=== PATIENT | female | born 2000 | race Two or more races ===

== ENCOUNTER 2022-08-14 09:33 | Emergency (ER) | payer MEDICAID, OTHER ==
[~2022-08-14] VITALS: Ht 154.9 cm; Wt 73.6 kg
[2022-08-14 09:55] VITALS: BP 143/87
[2022-08-14] MEDS ORDERED: cefTRIAXone SOD 1,000 MG VL IM ONE (10:15)
[2022-08-14] MEDS ORDERED: AZIT500T66 PO (10:48)
[2022-08-14] MEDS ORDERED: LIDO2SOL23 PO (10:48)
== END 2022-08-14 10:57 | disposition home or self-care (01) ==
LOC: ER 09:33
DX: H65.191 Other acute nonsuppurative otitis media, right ear (principal); J03.90 Acute tonsillitis, unspecified
CPT/HCPCS: 96372; 99283; J0696

== ENCOUNTER 2024-03-02 17:04 | Emergency (ER) | payer MEDICAID ==
[~2024-03-02] VITALS: Ht 152.4 cm; Wt 65.0 kg
[~2024-03-02 17:04] MED LIST: AZIT500T66 PO; LIDO2SOL26 PO
[2024-03-02] MEDS: SODIUM CHLORIDE 0.9% 1,000 ML IV ONE (18:01)
[2024-03-02 18:24] LABS: Basophils # (auto) 0 10 ^3/uL (0-0.2); Basophils % (auto) 0.3 % (0.0-2.0); Eosinophils # (auto) 0 10 ^3/uL (0-0.8); Eosinophils % (auto) 0.2 % (0.0-7.0); Lymphocytes % (auto) 15.9 % (10.0-50.0); Mean Corpuscular Hemoglobin 27.6 pg (28.0-32.0); Mean Corpuscular Hgb Conc. 33.4 g/dL (32.0-36.0); Mean Corpuscular Volume 82.5 fL (80.0-100.0); Monocytes # (auto) 0.6 10 ^3/uL (0-1.3); Monocytes % (auto) 4.9 % (0.0-12.0); Neutrophils % (auto) 78.7 % (37.0-80.0); Nucleated Red Blood Cells % 0.1 %; Red Blood Cells 4.72 10^6/uL (4.0-5.20); Red Cell Distribution Width 14.2 % (11.8-14.3); White Blood Cell 12.6 10^3/uL (4.4-10.8)
[2024-03-02 18:40] LABS: Alanine Aminotransferase 15 U/L (7-40); Albumin 4.4 g/dL (3.2-4.8); Alkaline Phosphatase 72 U/L (46-116); Anion Gap 8 (5-15); Aspartate Aminotransferase 9 U/L (13-40); BUN/Creatinine Ratio 19.7 (10.0-20.0); Bilirubin, Total 0.4 mg/dL (0.2-1.0); Blood Urea Nitrogen 12 mg/dL (9-23); Calcium 9.5 mg/dL (8.5-10.1); Carbon Dioxide 23 mmol/L (20-30); Chloride 110 mmol/L (98-107); Glucose 85 mg/dL (74-106); Potassium 4.2 mmol/L (3.5-5.1); Sodium 141 mmol/L (136-145); Total Protein 6.6 g/dL (5.7-8.2)
[2024-03-02 19:34] VITALS: BP 123/85; PULSE 84; RESP 16; TEMP 98; O2SAT 97
== END 2024-03-02 19:33 | disposition home or self-care (01) ==
LOC: EDUNIT# 17:04 → EDBD 17:04 → ER 17:04
DX: T67.5XXA Heat exhaustion, unspecified, initial encounter (principal); Z79.899 Other long term (current) drug therapy; X58.XXXA Exposure to other specified factors, initial encounter; Y93.89 Activity, other specified; Y92.89 Other specified places as the place of occurrence of the external cause; Y99.8 Other external cause status
CPT/HCPCS: 36415; 80053; 85025; 93005; 96360; 99284; J7030

== ENCOUNTER 2024-11-07 12:10 | Emergency (ER) | payer MEDICAID, SELFPAY ==
[~2024-11-07] VITALS: Ht 152.4 cm; Wt 72.3 kg
--- NOTE | 2024-11-07 13:02 | ED.PDOC ---
History of Present Illness HPI Comments 24F presents to the Er w/ prior Hx of being of 6 weeks which is associated to the c/c of cramping pain. Pt reports on being 6 weeks with cramps for 6 weeks as well. Pt notes that the cramping pain worsened today and that she is currently taking her Prenatals. . Denies chills, vaginal bl eeding, fever, N/V/D, SOB, CP or no other associated symptom's, modifiers, recent injuries or sick contacts at this time. Chief Complaint: Abdominal Pain Time Seen by MD: 12:35 Primary Care Provider: NONE Reviewed Notes: Nurses Notes, Medications, Allergies Allergies: Coded Allergies: NO KNOWN ALLERGIES (Unverified , 08/14/22) Home Meds Active Scripts Lidocaine HCl (Mouth-Throat) (Lidocaine HCl Viscous) 2 % Mariah, 5 % PO TID, #100 ML Prov:SHY STOCKTON 08/14/22 Azithromycin (Azithromycin) 500 Mg Tab, 1 TAB PO DAILY, #5 TAB Prov:SHY STOCKTON 08/14/22 Information Source: Patient Mode of Arrival: Ambulatory Severity: Moderate Timing: Weeks Duration: Since onset Prehospital treatment: None Past Medical History PAST MEDICAL HISTORY: Denies Past Medical History (Other): Surgical History: Denies all surgeries 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: 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 all 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 MANAGER Hx Family History Family History: Reviewed,noncontributory to illness, Unknown Social History Smoker: Non-Smoker Alcohol: Denies ETOH Use Drugs: Denies Drug Use Lives In: Home Constitutional: denies: chills, diaphoresis, fatigue, fever, malaise, sweats, weakness, others EENTM: denies: blurred vision, double vision, ear bleeding, ear discharge, ear drainage, ear pain, ear ringing, eye pain, eye redness, hearing loss, mouth pain, mouth swelling, nasal discharge, nose bleeding, nose congestion, nose pain, photophobia, tearing, throat pain, throat swelling, voice changes, others Respiratory: denies: cough, hemoptysis, orthopnea, SOB at rest, shortness of breath, SOB with excertion, stridor, wheezing, others Cardiovascular: denies: chest pain, dizzy spells, diaphoresis, Dyspnea on exertion, edema, irregular heart beat, left arm pain, lightheadedness, palpitations, PND, syncope, others Gastrointestinal: denies: abdomen distended, abdominal pain, blood streaked bowels, constipated, diarrhea, dysphagia, difficulty swallowing, hematemesis, melena, nausea, poor appetite, poor fluid intake, rectal bleeding, rectal pain, vomiting, others Genitourinary: reports: pain, ; denies: abnormal vagina bleeding, burning, dyspareunia, dysuria, flank pain, frequency, hematuria, incontinence, vagina discharge, urgency, others Neurological: denies: dizziness, fainting, headache, left sided numbness, left sided weakness, numbness, paresthesia, pre-existing deficit, right sided numbness, right sided weakness, seizure, speech problems, tingling, tremors, weakness, others Musculoskeletal: denies: back pain, gout, joint pain, joint swelling, muscle pain, muscle stiffness, neck pain, others Integumetry: denies: bruises, change in color, change in hair/nails, dryness, laceration, lesions, lumps, rash, wounds, others Allergic/Immunocompromised: denies: Difficulty Healing, Frequent Infections, Hives, Itching, others Hematologic/Lymphatic: denies: anemia, blood clots, easy bleeding, easy bruising, swollen glands, others Endocrine: denies: excessive hunger, excessive sweating, excessive thirst, excessive urination, flushing, intolerance to cold, intolerance to heat, unexplained weight gain, unexplained weight loss, others Psychiatric: denies: anxiety, bipolar disorder, depression, hopeless, panic disorder, schizophrenia, sleepless, suicidal, others All Other Systems: Reviewed and Negative Physical Exam General Appearance: Moderate Distress, Normal HEENT: Normal ENT Inspection, Pharynx Normal, TMs Normal Neck: Full Range of Motion, Non-Tender, Normal, Normal Inspection Respiratory: Chest Non-Tender, Lungs Clear, No Accessory Muscle Use, No Respiratory Distress, Normal Breath Sounds Cardiovascular: No Edema, No JVD, No Murmur, No Gallop, Normal Peripheral Pulses, Regular Rate/Rhythm Breast Exam: Deferred Gastrointestinal: No Organomegaly, Non Tender, No Pulsatile Mass, Normal Bowel Sounds, Soft Genitalia: Deferred Pelvic: Deferred Rectal: Deferred Extremities: No calf tenderness, Normal capillary refill, Normal inspection, Normal range of motion, Non-tender, No pedal edema Musculoskeletal : Apperance: Normal Neurologic: Alert, milling machine tender II-XII nml as Tested, No Motor Deficits, Normal Affect, Normal Mood, No Sensory Deficits Cerebellar Function: Normal Reflexes: Normal Skin: Dry, Normal Color, Warm Peripheral Pulses: 3+ Radial (R), 3+ Radial (L) Lymphatic: No Adenopathy Was a procedure done? Was a procedure done?: No Differential Dx Considerations may include: Urinary tract infection X-Ray, Labs, Meds, VS Vital Signs Date Time Temp Pulse Resp B/P (MAP) Pulse Ox O2 Delivery O2 Flow Rate FiO2 11/07/24 12:28 97.4 107 17 129/88 (102) 97 97.4 Lab Test 11/07/24 12:54 Range/Units Beta HCG, Quantitative 08760.5 H 1.5-4.2 mIU/mL Patient alert. Anxious. Vitals stable. Answering all questions. Beta quant appropriate. Abdomen is soft. No sign of any cramping. No bleeding. She is taking her vitamins. She does not have burning on urination. Explained to the patient. Was told to follow up with her primary care physician. Was told to come back if there is any problem. Time of 1ST Reevaluation: 13:05 Reevaluation 1ST: Improved Patient Education/Counseling: Diagnosis, Treatment, Prognosis Family Education/Counseling: No Family Present Departure 1 Departure Time of Disposition: 13:57 Impression: Primary Impression: Normal Qualified Codes: Z34.90 - Encounter for supervision of normal , unspecified, unspecified trimester Disposition: 01 HOME / SELF CARE / HOMELESS Condition: Good Discharged With: Self Critical Care Note Critical Care Time?: No Stability Stability form required: No Heart Score Heart Score: Heart Score Response (Comments) Value History N/A 0 EKG N/A 0 Age N/A 0 Risk Factors N/A 0 Troponin N/A 0 Total 0 I personally scribed for PAUL LOVE MD ([email or web address]) on 11/07/24 at 13:02. Electronically submitted by Evan Dalal ([email or web address]). PAUL LOVE MD Nov 07, 2024 13:02
--- NOTE | 2024-11-07 14:34 | DVH ---
CLINICAL HISTORY: cramping COMPARISON:None TECHNIQUE: grayscale sonographic imaging of the uterus and ovaries was performed, assisted by color Doppler technique. Duplex Doppler ultrasound of both ovaries was also performed. FINDINGS: The uterus measures 7.0 x 4.9 x 4.9 cm. There is an intrauterine gestational sac with yolk sac and pole visualized. Melwood-rump length measures 0.4 cm, corresponding to an estimated gesta tional age of 6 weeks 1 day. heart rate measures 116 beats per minute. Right ovary measures 3.3 x 2.2 x 2.7 cm. Arterial and venous blood flow demonstrated. Right ovarian s imple cyst measures up to 1.7 cm. Left ovary measures 3.8 x 1.4 x 2.5 cm. Arterial and venous blood flow demonstrated. Left ovarian sim ple cyst measures up to 1.5 cm. IMPRESSION: 1. Single living intrauterine with estimated gestational age of 6 weeks 1 day based on 1st trimester ultrasound crown-rump length. 2. Bilateral ovarian cysts/dominant follicles.
[2024-11-07 14:40] VITALS: PULSE 96; RESP 16; O2SAT 98
[2024-11-07 15:47] LABS: Urine Bacteria FEW /hpf (None Seen); Urine Blood Negative /uL (Negative); Urine Clarity Clear (Clear); Urine Color Light-Yellow (Yellow); Urine Mucus FEW (None Seen); Urine Protein, UAD Negative (Negative); Urine Specific Gravity 1.008 (1.001-1.035); Urine Squamous Epithelial Cell FEW /hpf (<5); Urine Urobilinogen Normal (Negative); Urine WBC 2 /HPF (0-5)
[2024-11-07 16:45] VITALS: BP 127/73; PULSE 118; RESP 18; TEMP 97.8; O2SAT 98
== END 2024-11-07 16:46 | disposition home or self-care (01) ==
LOC: ER 12:10
DX: O26.891 Other specified pregnancy related conditions, first trimester (principal); R10.9 Unspecified abdominal pain; Z3A.01 Less than 8 weeks gestation of pregnancy
CPT/HCPCS: 36415; 76801; 81001; 84702